=== PATIENT | male | born 1950 | race Caucasian/White ===

== ENCOUNTER 2023-10-16 02:06 | Observation (INO) | payer MEDICARE, SELFPAY ==
[2023-10-16] VITALS (66 sets, daily range): BP systolic 106–149; BP diastolic 68–89; PULSE 60–90; RESP 14–25; TEMP 36.4–36.8; O2SAT 92–99; BMI 27.9
--- NOTE | 2023-10-16 02:43 | ECG_ITS ---
[facility] Test Date: 2023-10-16 Pat Name: Chris Mckeon Department: Room: 106 Gender: Male Baker Paint: : 1950 Requested By: Dayo Beaver Order Number: [id number] Maria Schilling MD: David Munoz M.D. Measurements Intervals [place] Rate: 64 P: 52 MA: 157 QRS: 24 QRSD: 109 T: 3 QT: 391 QTc: 404 Interpretive Statements SINUS RHYTHM No previous ECG available for comparison Electronically Signed On 10-16-2023 18:19:21 CDT by David Munoz M.D. [id number]
--- NOTE | 2023-10-16 02:43 | USCV_ITS ---
Chris Mckeon Age: 72 Gender: M : 1950 Exam Date: 10/16/2023 02:59 Ordering Phys: Dayo Hannah MD Technologist: SHANICE Exam Location: [facility] Indication: chest pain. No history of cardiac intervention per patient. BP: 144 / 87 HR: 70 Rhythm: Sinus Technical Quality: Adequate MEASUREMENTS (Male / Female) Normal Values 2D ECHO LV Diastolic Diameter PLAX 4.1 cm 4.2 - 5.9 / 3.9 - 5.3 cm IVS Diastolic Thickness 1.1 cm 0.6 - 1.0 / 0.6 - 0.9 cm IVS Systolic Thickness 1.4 cm LVPW Diastolic Thickness 1.1 cm 0.6 - 1.0 / 0.6 - 0.9 cm LVPW Systolic Thickness 1.5 cm LVOT Diameter 2.1 cm LV Ejection Fraction 2D Teich 67.3 % LV Ejection Fraction MOD 2C 56.9 % LV Ejection Fraction 2C AL 56.8 % LA Diameter 3.1 cm LA Sys Volume AL 57.8 cm cubed LA Sys Volume Index AL 28.7 cm cubed/m squared Aorta at Sinotubular Diameter 3.2 cm IVC Diameter 1.6 cm M-MODE LA Ao Ratio MM 1.4 AV Cusp Separation MM 2.1 cm DOPPLER AV Peak Velocity 86.0 cm/s LVOT Peak Velocity 79.0 cm/s AV Area Cont Eq vti 4.0 cm squared AV Area Cont Eq pk 3.3 cm squared MV Peak Velocity 82.0 cm/s MV Area PHT 3.2 cm squared Mitral E to A Ratio 0.8 TV Peak Velocity 222.5 cm/s TR Peak Velocity 226.0 cm/s TR Peak Gradient 20.4 mmHg TV Peak E Velocity 32.0 cm/s Right Atrial Pressure 3.0 mmHg Pulmonary Artery Systolic Pressu 23.4 mmHg PV Peak Velocity 70.0 cm/s FINDINGS Left Ventricle Left ventricle is normal size. LV systolic function is normal with EF of 55 to 60%. No regional wall motion abnormalities. Grade 1 diastolic dysfunction Right Ventricle Normal in size and function Right Atrium Normal in size Left Atrium Normal in size Mitral Valve Structurally normal mitral valve. Mild mitral regurgitation Aortic Valve Structurally normal aortic valve. No significant stenosis or regurgitation. Tricuspid Valve Trace tricuspid regurgitation. RVSP is normal. Pulmonic Valve Not well visualized Pericardium Normal Aorta Normal in size IVC Appears to be normal CONCLUSIONS LV systolic function is normal with EF of 55-60% Grade 1 diastolic dysfunction Mild mitral regurgitation Trace tricuspid regurgitation No comparison studies are available. David Munoz MD (Electronically Signed) Final Date: 16 October 2023 18:48 S
--- NOTE | 2023-10-16 02:44 | P.HP_ITS ---
Providers/Chief Complaint Admitting Physician: Dayo Hannah MD Chief Complaint: Angina History of Present Illness Chris Mckeon is a 72 year old male with a past medical history significant for hyperlipidemia, hypothyroidism, and history of puh-xhsjvzm-xhecrqryh diet- controlled type 2 diabetes mellitus who initially presented to outside hospital ([facility]) with chest pain. He is down visiting local park riding horses. Patient reports he was in his usual state of health until this past Saturday when he developed substernal chest pain. He describes the pain as a heartburn-like sensation initially. States the pain got worse every day since Saturday. The episodes lasted longer. Reports it developed radiation going down both arms. States the pain got as bad as a 7 out of 10. States that exertion made the pain much worse. States when he rested, the pain would improve. Due to worsening symptoms he presented to the outside emergency room for further evaluation. At the outside ER, troponin was reportedly negative and there were no reported ischemic changes on EKG. Patient transferred to [facility] for ischemic evaluation due to concern for unstable angina. Patient denies known personal history of heart disease. He denies known family history of heart disease. He reports he had a remote history of a stress test as well as part of the physical many years ago. He believes it was likely normal result. He denies prior cardiac catheterizations. He denies prior similar symptomatology. Review of Systems Narrative: A complete review of systems was obtained and is negative except as stated in HPI. Medications/Allergies Home Medications Medication Instructions Recorded Confirmed Last Taken Type alfuzosin 10 mg tablet,extended mg PO 10/16/23 Unknown History release 24 hr metoclopramide HCl 10 mg tablet mg QID PRN Nausea 10/16/23 Unknown History Allergies Allergy/AdvReac Type Severity Reaction Status Date / Time No Known Allergies Allergy Verified 10/16/23 02:43 PFSH Acute PFSH: Medical History (Updated 10/16/23 @ 03:14 by Dayo Hannah MD) Hip fracture Hypothyroidism Hyperlipidemia Type 2 diabetes mellitus Surgical History (Updated 10/16/23 @ 03:10 by Dayo Hannah MD) History of inguinal hernia repair Family History (Updated 10/16/23 @ 03:10 by Dayo Hannah MD) Mother Breast cancer Social History (Updated 10/16/23 @ 03:10 by Dayo Hannah MD) Smoking and tobacco/nicotine status: never used tobacco/nicotine Alcohol intake: never Substance/Drug Use: never Physical Exam Narrative: General: Patient is awake. Appears fatigued, but very pleasant. Head: Normocephalic. Atraumatic. EOM intact. Neck: No JVD. Cardiovascular: RRR. No gallops. No murmurs. Lungs: Clear to auscultation, no use of accessory muscles, no crackles or wheezes. Skin: No jaundice. No rashes. Abdomen: Normal bowel sounds, abdomen soft and nontender. Genito Urinary: Genital exam not performed since complaints not related. Rectal: Rectal exam not performed since no symptoms indicated blood loss. Extremities: No cyanosis or clubbing. Musculoskeletal: No swollen or erythematous joints. Neurological: Moves all 4 extremities. No myoclonus. A&P Assessment and plan (1) Unstable angina: Presentation concerning for unstable angina Obtain EKG Continuous telemetry monitoring Obtain troponin and BNP Check complete echocardiogram Start aspirin Therapeutic Lovenox after body weight is updated Nitroglycerin as needed Plan to start beta-tara pending vitals Patient will require ischemic workup, consider cardiology consult in a.m. N.p.o. for now (2) Hyperlipidemia: Check lipid panel for restratification (3) Type 2 diabetes mellitus: Patient reports remote history of type 2 diabetes mellitus He reports diet controlled and now resolved Will check A1c for restratification (4) Hypothyroidism: Plan to continue home Synthroid after home med list is updated Plan DVT prophylaxis: Lovenox CODE STATUS: Full code Attestations Medical Necessity Statement*: Patient transferred from outside hospital after presenting with chest pain, concerning for unstable angina with expected hospitalization not to cross 2 midnights for ischemic workup. Coding Level of Care Code Acute Code for g Fwd Diagnoses Unstable angina I20.0 Hyperlipidemia E78.5 Type 2 diabetes mellitus E11.9 Hypothyroidism E03.9
[2023-10-16 04:05] LABS: Basophils % 0.6 %; Eosinophils # 0.6 10^3/uL (0.0-0.8); Eosinophils % 9.6 %; Hematocrit 39.9 % (37-53); Lymphocytes # 1.9 10^3/uL (0.8-4.8); Lymphocytes % 30.2 %; Mean Corpuscular HGB Conc 34.1 g/dL (30-55); Mean Corpuscular Hemoglobin 32.1 pg (27-33); Mean Corpuscular Volume 94.1 fl (82-101); Mean Platelet Volume 8.6 fL (7.4-10.4); Monocytes # 0.6 10^3/uL (0.2-0.9); Monocytes % 9.6 %; Neutrophils # 3.05 10^3/uL (1.8-7.7); Neutrophils % 49.5 %; Nucleated Red Blood Cells % 0 %; Platelet Count 227 10^3/cmm (157-399); Red Blood Count 4.24 10^6/uL (3.85-5.65); Red Cell Distribution Width 12.8 % (12.1-15.1); White Blood Count 6.16 10^3/uL (3.29-11.43)
[2023-10-16 04:17] LABS: Add Urine Microscopic? NO; Charge for UA Resulting for Rev
[2023-10-16 04:22] LABS: Blood Urine Neg (Negative); Glucose Urine UA Norm (Normal); Ketones Urine Negative (Negative); Protein Urine Neg (Negative); Urine Appearance Clear (CLEAR); Urine Color Yellow (Yellow); pH Urine 6.5 (5-7)
[2023-10-16 04:23] LABS: Bilirubin Urine Neg (Negative); Leukocyte Esterase Urine Negative (Negative); Nitrate Urine Negative (Negative); Urobilinogen Urine Neg (Negative)
[2023-10-16 04:25] LABS: Estmated Average Glucose 108; Hemoglobin A1C 5.4 % (4.0-6.0); Troponin T (5th) Once 18 ng/L (0-15)
[2023-10-16 04:27] LABS: INR 0.97 (0.8-1.2)
[2023-10-16 04:35] LABS: Alanine Aminotransferase 20 U/L (0-41); Albumin Level 4.1 g/dL (3.5-5.2); Alkaline Phosphatase 68 U/L (40-130); Aspartate Amino Transferase 27 U/L (0-40); Blood Urea Nitrogen 20 mg/dL (8-23); Carbon Dioxide 24 mmol/L (22-29); Chloride 108 mmol/L (98-107); Chol HDL Ratio 3.45 mg/dL (1.0-5.00); Cholesterol 183 mg/dL (0-200); Creatinine Clr Calc Pharmacy 64.7764; Globulin 2.1 g/dL (1.3-4.6); Glucose 100 mg/dL (65-115); HDL Cholesterol 53 mg/dL (60-100); LDL Cholesterol Calculated 118 mg/dL (50-129); LDL HDL Ratio 2.23 RATIO (0.00-3.22); Magnesium 2.2 mg/dL (1.7-2.3); NT Pro B Type Natriuretic Pept 129 pg/mL (0-125); Osmolality Calculated 297 mOsm/kg (285-295); Sodium 142 mmol/L (136-145); Total Bilirubin 0.2 mg/dL (0.15-1.2); Total Protein 6.2 g/dL (6.6-8.7); Triglycerides 60 mg/dL (0-150)
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
--- NOTE | 2023-10-16 06:00 | XRR_ITS ---
PROCEDURE INFORMATION: Exam: XR Chest Exam date and time: 10/16/2023 4:05 AM Age: 72 years old Clinical indication: Angina; Additional info: Chest pain TECHNIQUE: Imaging protocol: Radiologic exam of the chest. Views: 1 view. COMPARISON: No relevant prior studies available. FINDINGS: Lungs: Unremarkable. No consolidation. Pleural spaces: Unremarkable. No pleural effusion. No pneumothorax. Heart/Mediastinum: Unremarkable. No cardiomegaly. Bones/joints: Degenerative change of the visualized osseous structures. XR/XR chest 1V portable [id number] IMPRESSION: No acute cardiopulmonary findings.
[2023-10-16 06:38] LABS: Troponin(5th) Baseline 17 ng/L (0-15)
[2023-10-16 08:30] LABS: Troponin 5 2HR 15.33 ng/L (0-15)
[2023-10-16 08:32] LABS: Troponin 5 2HR Delta -1.67 ABS# (0-10)
[2023-10-16] MEDS: aspirin 81 mg EC Tablet PO (08:40)
[2023-10-16] MEDS: enoxaparin 80 mg/0.8 mL Syringe SUBCUT (08:40)
--- NOTE | 2023-10-16 09:51 | XACV_ITS ---
Exam Room: [facility] Ht: 173 cm Wt: 82 kg BSA: 2.00 m2 Gender: Male : 1950 Any Known Allergies: No known allergies Exam Priority: Routine Procedure(s): Procedure Description: Diagnostic procedure Procedure Description: PCI procedure Procedure Description: Coronary IVUS Procedure Description: Drug Eluting Coronary Stent Procedure Description: PTCA Procedure Description: Miscellaneous Procedure Description: ACT Procedure Description: Coronary Angiography Diagnostic Cath Status: Urgent Diagnostic Findings * INDICATION: Unstable angina. * Left Main has no significant disease. * Circumflex has mild luminal irregulaities. * Right Coronary Artery has mild luminal irregularities. * Proximal Left Anterior Descending: critical 95% stenosis, GARRETT: 3 flow. * Second Obtuse Marginal Branch Segment: obstructive 70% stenosis, GARRETT: 3 flow. * Coronary angiography shows right dominance. PCI Status: Urgent PCI Indication: NSTE - ACS Interventional Findings * Procedure detail: We engaged left main artery with XB 3.0 guide catheter. IV heparin was administered to maintain anticoagulation. 0.014 run-through guidewire was used to cross the critical LAD stenosis and was put in distal vessel. We then proceeded with predilation with a 3.5 x 12 mm semicompliant balloon. This was followed by IVUS to size the vessel. We placed 4.0 x 15 mm resolute Rivas drug-eluting stent. This stent was postdilated with a 4.5 x 8 mm NC balloon. Final angiogram showed excellent stent expansion and no residual stenosis. We then turned our attention to OM 2 branch. We predilated the lesion with a 3.5 x 12 mm semicompliant balloon. This was followed by placement of a 3.5 x 18 mm's resolute Rivas drug-eluting stent. Proximally we postdilated the stent with 3.75 x 15mm NC balloon. At this time final angiogram was performed that showed excellent stent expansion, no residual stenosis and GARRETT-3 flow. Guide wire and guide catheter were removed. 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 . * Proximal Left Anterior Descendin% stenosis treated with a AB TREK 3.50X12 RX BALLOON, MDT R RIVAS 4.0X15 FAUSTO, and MDT NC EUPHORA RX [id number] BALLOON. 0% residual stenosis, GARRETT: 3 flow. * Second Obtuse Marginal Branch Segment: 70% stenosis treated with a AB TREK 3.50X12 RX BALLOON, MDT R RIVAS 3.5X18 FAUSTO, and MDT NC EUPHORA RX [id number] BALLOON. 0% residual stenosis, GARRETT: 3 flow. Conclusions 1. Critical proximal LAD stenosis status post successful revascularization with 1 stent. Severe OM 2 stenosis s/p successful revascularization with 1 stent.. 2. Proximal Left Anterior Descending was treated with a Balloon, Drug Eluting Stent, and Balloon. 3. Second Obtuse Marginal Branch Segment was treated with a Balloon, Drug Eluting Stent, and Balloon. Recommendations * Dual antiplatelet therapy with aspirin and brilinta for atleast 1 year. * High intensity statin therapy. * Outpatient cardiology follow up in 2-4 weeks. Interventional RX Recommendation: PCI w/o planned CABG Diagnostic RX Recommendation: PCI w/o planned CABG Anticoagulation: Heparin Pressures Phase:Rest AO : 89 / 71 ( 81 ) @ 11:24:00 AM 108 / 55 ( 74 ) @ 11:32:00 AM 100 / 73 ( 87 ) @ 11:39:00 AM 83 / 67 ( 77 ) @ 11:41:00 AM 115 / 79 ( 97 ) @ 11:42:00 AM 127 / 82 ( 104 ) @ 11:52:00 AM 116 / 84 ( 100 ) @ 11:53:00 AM 112 / 77 ( 94 ) @ 12:02:00 PM 104 / 73 ( 84 ) @ 12:09:00 PM Clinical Evaluation EBL: 5mL-10mL Procedural Details Procedure Consent Obtained. Admit Source: In Patient. Pre-Procedure Time Out. Identified patient by full name and date of as verbalized by the patient/guarantor. Does the consent match the physician's order: Yes. Accurate & Complete Informed Consent: Yes. Inpatient/Outpatient History & Physical on Chart: Yes. If H&P is completed, is and addenduem needed: No; If yes, is the addendum complete: N/A. Visualize and Verify Site with Patient/Guarantor: N/A. Relevant Radiology Images available: N/A. The risks, benefits, and alternatives of sedation and/or procedure were discussed by physician. The patient agrees to continue. Procedure started. [facility] Clinical Fraility Score: 3: Managing Well. Design Verification Engineer Indications: Worsening Angina. Chest Pain Symptom Assessment: Typical Angina Symptoms. Correct patient, site and procedure confirmed by cath team. Current diagnosis: Unstable angina. PERRLA. Strong, equal hand flat ironer bilaterally. Lungs clear x 5 lobes. IV Site on Arrival: 18 gauge in the left forearm. IV Fluids: 0.9% NaCl at KVO. 0 mL infused prior to tutorial laboratory supervisor. Oxygen started at 2liters/min via nasal canula. Pre Procedural Pulses: bilateral dorsalis pedis was 2+. Pre Procedural Pulses: left posterior tibial was Doppled. Pre Procedural Pulses: right posterior tibial was 1+. right groin was prepped with chloroprep then draped in the usual sterile fashion. right radial was prepped with chloroprep then draped in the usual sterile fashion. Baseline sample Acquired. HR: 74 BPM. Physician arrived. Physician scrubbed in. Immediate Pre-Procedure Time Out. Correct Patient: Yes; Correct Procedure: Yes; Correct Site: Yes; Correct Patient Position: Yes; Correct Supplies: Yes; Dried Flammable Prep: Yes; Blood Products Available: N/A;. Lidocaine 1% infiltrated to the right radial. Arterial access obtained. A 5 burundian TIG catheter in over wire. Multiple views taken of left coronary artery. Catheter redirected to the RCA. Multiple views taken of right coronary artery. Catheter removed over the exchange wire. 6 burundian XB 3 guide catheter was inserted over the wire. Runthrough guidewire was advanced through the guide catheter to lesion in the prox LAD. Inflation number : 1 A AB TREK 3.50X12 RX BALLOON was prepped and advanced across the Prox LAD , then inflated to 6 JEAN for 0:07 seconds. Inflation number: 2 The AB TREK 3.50X12 RX BALLOON was reinflated across the Prox LAD, to 14 JEAN for 0:15 seconds. Balloon out. IVUS catheter inserted and advanced to the prox LAD. IVUS measurements obtained. IVUS catheter out OTW. Inflation Number : 3 A MDT R RIVAS 4.0X15 FAUSTO -Lot Number# _[id number] EXP: 01/08/2026 was prepped and advanced across the Prox LAD. The stent was deployed at 12 JEAN for 0:22 seconds. Stent balloon out over wire. Results checked. IVUS catheter inserted and advanced to the prox LAD. IVUS measurements obtained. IVUS catheter out OTW. Inflation number : 4 A MDT NC EUPHORA RX [id number] BALLOON was prepped and advanced across the Prox LAD , then inflated to 14 JEAN for 0:14 seconds. Inflation number: 5 The MDT NC EUPHORA RX [id number] BALLOON was reinflated across the Prox LAD, to 16 JEAN for 0:11 seconds. Balloon out. Results checked. A second Runthrough guidewire was advanced through the guide catheter to lesion in the OM. The first Runthrough wire removed. Inflation number: 1 The AB TREK 3.50X12 RX BALLOON was reinflated across the 2nd Ob Zohra, to 12 JEAN for 0:25 seconds. Balloon out. Inflation Number : 2 A MDT R RIVAS 3.5X18 FAUSTO -Lot Number# _[id number] EXP:01/27/2026 was prepped and advanced across the 2nd Ob Zohra. The stent was deployed at 12 JEAN for 0:21 seconds. Stent balloon out over wire. Results checked. Inflation number : 3 A MDT NC EUPHORA RX [id number] BALLOON was prepped and advanced across the 2nd Ob Zohra , then inflated to 18 JEAN for 0:22 seconds. Balloon out. Results checked. Wire out. ACT drawn. Results out of range high seconds. Therapeutic limits - pre-heparin administration 90-150 seconds and monitoring heparin during a vascular procedure >250 seconds. Guide catheter out. A TR Band was successful obtaining hemostatsis at the Right Radial artery insertion site. Post Procedure: Pulses reassessed and unchanged. PERRLA. Strong, equal hand flat ironer bilaterally. No VTE prophylaxis required. Medication's Wasted: Lidocaine 1% = 18 mL. Medication's Wasted: Nitro = 49.6 mcg. Medication's Wasted: Heparin = 3000 units. Medication's Wasted: Other = Fentanyl 25mcg Versed 1 mg. Total IV fluids: 83 mL. Vital chart was stopped. Complications: None. Estimated blood loss: 5mL-10mL. Responsiveness - Normal response to verbal stimuli; alert and oriented, PERRLA. Airway - Unaffected, no intervention required; spontaneous ventilation. Circulation: W/N/L, pulses unchanged. Nausea/Vomiting: No. Procedure completed. Patient transferred by wheelchair to CPRU. Access Site Site: Right Radial artery Sheath Size: 6 Fr Hemostasis Method: TR Band Hemostasis Success: Successful Procedure Medications Start: 10:12 AM Stop: 10:12 AM Medication: Versed Amount: 1 mg Route: I.V. Start: 10:12 AM Stop: 10:12 AM Medication: Fentanyl Amount: 50 mcg Route: I.V. Start: 10:22 AM Stop: 10:22 AM Medication: Versed Amount: 1 mg Route: I.V. Start: 10:22 AM Stop: 10:22 AM Medication: Nitrogylcerin Amount: 200 mcg Route: I.A. Start: 10:29 AM Stop: 10:29 AM Medication: Heparin Amount: 7000 units Route: I.V. Start: 10:30 AM Stop: 10:30 AM Medication: Nitrogylcerin Amount: 200 mcg Route: I.A. Start: 10:45 AM Stop: 10:45 AM Medication: Heparin Amount: 1000 units Route: I.V. Start: 10:47 AM Stop: 10:47 AM Medication: Zofran (ondansetron) Amount: 4 mg Route: I.V. Start: 10:58 AM Stop: 10:58 AM Medication: Versed 1 mg and Fentanyl 25 mcg Amount: 1 Route: I.V. Start: 11:00 AM Stop: 11:00 AM Medication: Aggrastat 12.5 mg/250 mL Amount: 41 ml Route: I.V. bolus Start: 11:01 AM Stop: 11:01 AM Medication: Aggrastat 12.5 mg/250 mL Amount: 14.8 ml/hr Route: I.V. drip Start: 11:15 AM Stop: 11:15 AM Medication: 0.9% Saline Amount: 75 ml/hr Route: I.V. drip Start: 11:18 AM Stop: 11:18 AM Medication: Brilinta Amount: 180 mg Route: P.O. I, the attending physician, have reviewed and verified all procedure medications. Yes, all medications given per verbal order History/Risk Factors Hypertension: No Dyslipidemia: Yes Peripheral Arterial Disease (PAD): No Myocardial Infarction (MD): No Obesity: No Renal Disease: No Tobacco Use: Never Prior Interventions PCI: No CABG: No Valve Surgery: No Report Signatures Finalized by David Munoz MD on 10/27/2023 01:52 PM
--- NOTE | 2023-10-16 09:56 | PM.CONSULT ---
Providers/Reason For Consult Consulting Physician/Specialty*: David Munoz MD/ Cardiology Reason for Consult*: Unstable angina Requesting Physician: Dr Keen Attending Physician: Dara Keen MD History of Present Illness History of Present Illness Chris Mckeon is a 72 year old male with past medical history of hypertension, hyperlipidemia, diet-controlled diabetes who was transferred from outside hospital secondary to concerns for unstable angina. Since last 3 to 4 days he has been having worsening substernal chest pain radiating to the arms. Sometimes feels like heartburn. His troponins have not trended up. EKG not showing any significant ischemic changes. Pain goes to 7/10 in intensity. Rest has improved pain at times but comes back with activity. Review of Systems Narrative: A complete review of systems was obtained and is negative except as stated in HPI. Medications/Allergies Home Medications Medication Instructions Recorded Confirmed Last Taken Type alfuzosin 10 mg tablet,extended 10 mg PO 1XD 10/16/23 10/16/23 Unknown History release 24 hr diclofenac sodium 75 mg 75 mg PO 1XD 10/16/23 10/16/23 Unknown History tablet,delayed release gemfibrozil 600 mg tablet 600 mg PO BID 10/16/23 10/16/23 Unknown History hydroxychloroquine 200 mg tablet 200 mg PO BID 10/16/23 10/16/23 10/15/23 History levothyroxine 125 mcg tablet 125 mcg PO 1XD 10/16/23 10/16/23 Unknown History metoclopramide HCl 10 mg tablet 10 mg PO QID PRN Nausea 10/16/23 10/16/23 Unknown History omeprazole 40 mg capsule,delayed 40 mg PO BID 10/16/23 10/16/23 Unknown History release Allergies Allergy/AdvReac Type Severity Reaction Status Date / Time No Known Allergies Allergy Verified 10/16/23 02:43 Current Medications Generic Name Dose Route Start Last Admin Trade Name Freq PRN Reason Stop Dose Admin Aspirin 81 mg 10/16/23 09:00 10/16/23 08:40 Aspirin 81 Mg Ec Tablet PO 81 mg DAILY SHENG Administration Enoxaparin Sodium 80 mg 10/16/23 06:30 10/16/23 08:40 Enoxaparin 80 Mg/0.8 Ml Syringe SUBCUT 80 mg Q12H SHENG Administration PFSH Acute PFSH: Medical History Hip fracture Hypothyroidism Hyperlipidemia Type 2 diabetes mellitus Surgical History History of inguinal hernia repair Family History Mother Breast cancer Social History Smoking and tobacco/nicotine status: never used tobacco/nicotine Alcohol intake: never Substance/Drug Use: never Vitals/I&O/Wt Last Vital Signs Temp 98.1 F 10/16/23 07:08 Pulse 70 10/16/23 07:08 Resp 22 H 10/16/23 07:08 BP 114/80 10/16/23 07:08 Pulse Ox 95 10/16/23 07:08 O2 Del Method Room Air 10/16/23 07:08 10/15/23 10/16/23 10/16/23 22:59 06:59 14:59 Intake Total 120 / 120 Output Total 600 / 600 700 / 700 Balance -600 / -600 -580 / -580 Weight last 48 hrs Weight 181 lb Weight 181 lb Weight 183 lb 9.6 oz Physical Exam Narrative: GENERAL: Patient is alert, awake and oriented x3. [] NECK: No jugular vein distension. [] HEENT: No cyanosis. No icterus. No pallor. [] HEART: Regular S1 and S2. No murmur, rub or gallop. [] LUNGS: Clear to auscultate bilaterally. [] CENTRAL NERVOUS SYSTEM: Grossly nonfocal. [] EXTREMITIES: Lower extremities with 1+ edema bilaterally. Data 10/16/23 03:24 10/16/23 03:24 A&P Assessment and plan (1) Unstable angina: (2) Hyperlipidemia: (3) Type 2 diabetes mellitus: Plan Patient has presented with symptoms concerning for unstable angina. He has multiple risk factors for CAD. Will proceed with coronary angiogram with possible PCI. Risks and benefits of the procedure been discussed with the patient. He understands them and wants to proceed Patient has received anticoagulation. Continue NPO. Echocardiogram ordered. Thank you for involving us with care of this patient. We will continue to follow. Please call with questions Consult Attestations Medical Necessity Statement: Care expected to cross 2 midnights. Coding Level of Care Code Acute Code for [facility] Fwd Diagnoses Unstable angina I20.0 Hyperlipidemia E78.5 Type 2 diabetes mellitus E11.9
--- NOTE | 2023-10-16 10:15 | W.PM.OPSUD ---
Surgery/Procedure H&P Update DATE OF PROCEDURE: October 16, 2023 DATE H&P PERFORMED: 10/16/23 H&P UPDATE INFORMATION: I have reviewed H&P completed within last 30 days, I have examined patient prior to procedure and No changes to prior documentation PREOP DIAGNOSIS: Unstable angina PRIMARY INDICATION FOR PROCEDURE: Unstable angina PLANNED PROCEDURE: Left heart cath with possible percutaneous coronary intervention PATIENT REASSESSED PRIOR TO SEDATION, WITH NO CHANGE NOTED: Yes PHYSICAL EXAM: alert, oriented x 3, clear to auscultation bilaterally and regular rate & rhythm AIRWAY EVAL/ANESTHESIA PLAN: normal airway, ASA III, Local Anesthesia, Risks, benefits & alternatives of sedation and/or procedure discussed and Patient agrees to continue as planned ADDITIONAL INFORMATION: Moderate sedation
--- NOTE | 2023-10-16 11:21 | PM.MISC ---
Miscellaneous Note Purpose of Documentation: Brief procedure note Note: Coronary angiogram Left main artery is patent. Critical proximal LAD 95% stenosis s/p successful revascularization with 1 stent Severe OM stenosis s/p 1 stent PLAN: Transfer back to [facility] for 4 hours Continue aspirin 81mg daily. 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 Will be on 90mg BID brilinta starting 9PM. Tele monitoring
[2023-10-16] MEDS: sodium chloride 0.9% 1,000 ML 100 ML IV (12:00)
[2023-10-16 12:35] LABS: Troponin 5 6HR 17.05 ng/L (0-15); Troponin 5 6HR Delta 0.05 ng/L (0-12)
[2023-10-16] MEDS: acetaminophen 325 mg Tablet 650 MG PO ×2 (13:17→17:10)
--- NOTE | 2023-10-16 13:18 | PC.RESP ---
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 pt had returned to floor and was able to have 3rd ekg performed
--- NOTE | 2023-10-16 14:17 | ECG_ITS ---
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 Measurements Intervals [place] Rate: 60 P: 47 ID: [id number] QRS: 34 QRSD: 106 T: 23 QT: 410 QTc: 412 Interpretive Statements SINUS RHYTHM Compared to ECG 10/16/2023 03:48:59 No significant changes Electronically Signed On 10-16-2023 18:17:48 CDT by David Munoz M.D. [id number]
--- NOTE | 2023-10-16 15:10 | PC.NURSE ---
[facility] bag ran out at 15:04. It was to be turned off at 15:20. No new bag hung at this time as it was to only run for another 16 minutes.
[2023-10-16] MEDS: ticagrelor 90 mg Tablet PO (17:11)
[2023-10-16] MEDS: atorvastatin 40 mg Tablet 80 MG PO (21:02)
[2023-10-16] MEDS: metoprolol tartrate 25 mg Tablet PO (21:02)
[2023-10-17 00:44] VITALS: BP 142/85; PULSE 67; RESP 18; O2SAT 95
[2023-10-17 05:47] VITALS: BP 142/85; PULSE 63; RESP 8; O2SAT 96
[2023-10-17 06:00] VITALS: PULSE 63; BMI 27.5
[2023-10-17 07:39] VITALS: BP 121/78; PULSE 76; RESP 18; TEMP 36.6; O2SAT 95
[2023-10-17] MEDS: metoprolol tartrate 25 mg Tablet PO (08:19)
[2023-10-17] MEDS: aspirin 81 mg EC Tablet PO (08:19)
[2023-10-17] MEDS: ticagrelor 90 mg Tablet PO (08:19)
[2023-10-17] MEDS: levothyroxine 125 mcg Tablet PO (08:19)
[2023-10-17 08:25] LABS: Basophils % 0.4 %; Eosinophils # 0.4 10^3/uL (0.0-0.8); Eosinophils % 4.2 %; Hematocrit 45.1 % (37-53); Lymphocytes # 1.3 10^3/uL (0.8-4.8); Lymphocytes % 13.4 %; Mean Corpuscular HGB Conc 33.9 g/dL (30-55); Mean Corpuscular Hemoglobin 31.9 pg (27-33); Mean Platelet Volume 8.5 fL (7.4-10.4); Monocytes # 0.8 10^3/uL (0.2-0.9); Monocytes % 8.4 %; Neutrophils # 7.16 10^3/uL (1.8-7.7); Neutrophils % 73.1 %; Nucleated Red Blood Cells % 0 %; Platelet Count 263 10^3/cmm (157-399); Red Cell Distribution Width 12.8 % (12.1-15.1); White Blood Count 9.79 10^3/uL (3.29-11.43)
[2023-10-17 08:41] LABS: Anion Gap 16.1 (5-19); Blood Urea Nitrogen 16 mg/dL (8-23); Calcium 9.2 mg/dL (8.5-10.5); Carbon Dioxide 24 mmol/L (22-29); Chloride 104 mmol/L (98-107); Creatinine Clr Calc Pharmacy 70.8017; Glucose 109 mg/dL (65-115); Osmolality Calculated 292 mOsm/kg (285-295); Potassium 4.1 mmol/L (3.5-5.1); Sodium 140 mmol/L (136-145)
--- NOTE | 2023-10-17 08:45 | P.PN_ITS ---
Subjective 2 Subjective: Patient is doing well. No chest pain. Vitals/I&O/Wt Last Vital Signs Temp 97.9 F 10/17/23 07:39 Pulse 76 10/17/23 07:39 Resp 18 10/17/23 07:39 BP 121/78 10/17/23 07:39 Pulse Ox 95 10/17/23 07:39 O2 Del Method Room Air 10/17/23 07:39 10/16/23 10/17/23 10/17/23 22:59 06:59 14:59 Intake Total 1360 / 1720 Output Total 600 / 1750 Balance 760 / -30 Weight last 48 hrs Weight 181 lb Weight 181 lb Weight 181 lb Weight 183 lb 9.6 oz Physical Exam 2 Narrative: GENERAL: Patient is alert, awake and oriented x3. [] NECK: No jugular vein distension. [] HEENT: No cyanosis. No icterus. No pallor. [] HEART: Regular S1 and S2. No murmur, rub or gallop. [] LUNGS: Clear to auscultate bilaterally. [] CENTRAL NERVOUS SYSTEM: Grossly nonfocal. [] EXTREMITIES: Lower extremities with 1+ edema bilaterally. Data 10/17/23 07:58 10/17/23 07:58 A&P Assessment and plan (1) Unstable angina: (2) Hyperlipidemia: (3) Type 2 diabetes mellitus: Plan Patient is overall doing well.No chest pain. Had PCI of proximal LAD with 1 stent and of OM with 1 stent. Cotninue dual antiplatelet therapy with aspirin and brilinta for atleast 1 year High intensity statin therapy echo showed normal LV systolic function Patient is stable to be discharged from cardiac standpoint. Attestations 2 Medical Necessity Statement*: Care expected to cross 2 midnights. Coding Level of Care Code Acute Code for [facility] Fwd Diagnoses Unstable angina I20.0 Hyperlipidemia E78.5 Type 2 diabetes mellitus E11.9
--- NOTE | 2023-10-17 09:36 | PM.DCS ---
Discharge Providers Date of Admission: 10/16/23 02:06 Date of Discharge: October 17, 2023 Attending Provider at Admission: Dayo Hannah MD Attending Provider at Discharge: Dara Keen MD Diagnoses at Discharge Discharge Diagnosis (1) Unstable angina: Status: Acute (2) Hyperlipidemia: Status: Acute (3) Type 2 diabetes mellitus: Status: Acute Reason for Visit Reason for Visit: Angina Brief History: 72 year old male with a past medical history significant for hyperlipidemia, hypothyroidism, and history of lxs-blqaowv-ccskvvffp diet-controlled type 2 diabetes mellitus who initially presented to outside hospital ([facility]) with chest pain. [place] down [place]. Patient reports he was in his usual state of health until this past Saturday when he developed substernal chest pain. He describes the pain as a heartburn-like sensation initially. States the pain got worse every day since Saturday. The episodes lasted longer. Reports it developed radiation going down both arms. States the pain got as bad as a 7 out of 10. States that exertion made the pain much worse. States when he rested, the pain would improve. Due to worsening symptoms he presented to the outside emergency room for further evaluation. At the outside ER, troponin was reportedly negative and there were no reported ischemic changes on EKG. Patient transferred to [facility] for ischemic evaluation due to concern for unstable angina. Patient denies known personal history of heart disease. He denies known family history of heart disease. He reports he had a remote history of a stress test as well as part of the physical many years ago. He believes it was likely normal result. He denies prior cardiac catheterizations. He denies prior similar symptomatology. Hospital Course Hospital Course Cardiology consulted for questionable symptoms of unstable angina and he underwent Cardiac cath which showed Left main artery is patent. Critical proximal LAD 95% stenosis s/p successful revascularization with 1 stent Severe OM stenosis s/p 1 stent He is doing well, hemodynamically stable and ready to be discharged home with new medications, aspirin, atorvastatin, metoprolol and Brilinta. Plan for him to follow-up with PCP and cardiology in 1 week in [place] Physical Exam Narrative: He is alert awake oriented x 3 not in acute distress Chest clear to auscultation bilaterally Cardiovascular normal heart sounds no murmurs Abdomen NAD Extremities no edema noted bilateral lower extremity Discharge Data Studies Completed and Pending Completed Studies During Hospitalization Category Date Time Status XR chest 1V portable [id number] Routine Exams 10/16/23 06:00 Completed CV. echo complete* [id number] Routine Ultrasound 10/16/23 02:43 Completed Pending at discharge Category Date Time Status CORE BLOWER request for service Routine Exams 10/16/23 09:51 Taken Radiology Impressions Chest X-Ray 10/16/23 06:00 IMPRESSION: No acute cardiopulmonary findings. Laboratory Results WBC 9.79 10^3/uL (3.29-11.43) 10/17/23 07:58 RBC 4.80 10^6/uL (3.85-5.65) 10/17/23 07:58 Hgb 15.30 g/dL (11.27-16.99) 10/17/23 07:58 Hct 45.1 % (37-53) 10/17/23 07:58 MCV 94.0 fl (82-101) 10/17/23 07:58 MCH 31.9 pg (27-33) 10/17/23 07:58 MCHC 33.9 g/dL (30-55) 10/17/23 07:58 RDW 12.8 % (12.1-15.1) 10/17/23 07:58 Plt Count 263 10^3/cmm (157-399) 10/17/23 07:58 MPV 8.5 fL (7.4-10.4) 10/17/23 07:58 Neut % (Auto) 73.1 % 10/17/23 07:58 Lymph % (Auto) 13.4 % 10/17/23 07:58 [place] % (Auto) 8.4 % 10/17/23 07:58 Eos % (Auto) 4.2 % 10/17/23 07:58 Baso % (Auto) 0.4 % 10/17/23 07:58 Neut # (Auto) 7.16 10^3/uL (1.8-7.7) 10/17/23 07:58 Lymph # (Auto) 1.3 10^3/uL (0.8-4.8) 10/17/23 07:58 [place] # (Auto) 0.8 10^3/uL (0.2-0.9) 10/17/23 07:58 Eos # (Auto) 0.4 10^3/uL (0.0-0.8) 10/17/23 07:58 Baso # (Auto) 0.0 10^3/uL (0.0-0.1) 10/17/23 07:58 Nucleated RBC % (auto) 0 % 10/17/23 07:58 Nucleated RBCs # 0.0 /100WBC 10/17/23 07:58 PT 13.20 SECONDS (12.1-14.9) 10/16/23 03:24 INR 0.97 (0.8-1.2) 10/16/23 03:24 Sodium 140 mmol/L (136-145) 10/17/23 07:58 Potassium 4.1 mmol/L (3.5-5.1) 10/17/23 07:58 Chloride 104 mmol/L (98-107) 10/17/23 07:58 Carbon Dioxide 24 mmol/L (22-29) 10/17/23 07:58 Anion Gap 16.1 (5-19) 10/17/23 07:58 BUN 16 mg/dL (8-23) 10/17/23 07:58 Creatinine 1.0 mg/dL (0.7-1.2) 10/17/23 07:58 GFR Calculation Not Reportable 10/17/23 07:58 Glucose 109 mg/dL (65-115) 10/17/23 07:58 Estimat Average Glucose 108 10/16/23 03:24 Hemoglobin A1c 5.4 % (4.0-6.0) 10/16/23 03:24 Calculated Osmolality 292 mOsm/kg (285-295) 10/17/23 07:58 Calcium 9.2 mg/dL (8.5-10.5) 10/17/23 07:58 Phosphorus 3.0 mg/dL (2.5-4.5) 10/16/23 03:24 Magnesium 2.2 mg/dL (1.7-2.3) 10/16/23 03:24 Total Bilirubin 0.2 mg/dL (0.15-1.2) 10/16/23 03:24 AST 27 U/L (0-40) 10/16/23 03:24 ALT 20 U/L (0-41) 10/16/23 03:24 Alkaline Phosphatase 68 U/L (40-130) 10/16/23 03:24 Troponin T 5th Gen ng/L 18 ng/L (0-15) H 10/16/23 03:24 Troponin T Baseline 17 ng/L (0-15) H 10/16/23 06:13 Troponin T 120 Minute 15.33 ng/L (0-15) H 10/16/23 08:04 Delta Troponin T -1.67 ABS# (0-10) L 10/16/23 08:04 Troponin T Hi Sens 6Hr 17.05 ng/L (0-15) H 10/16/23 12:11 Troponin T Hi Sens 6Hr Delta 0.05 ng/L (0-12) 10/16/23 12:11 NT-Pro-B Natriuret Pep 129 pg/mL (0-125) H 10/16/23 03:24 Total Protein 6.2 g/dL (6.6-8.7) L 10/16/23 03:24 Albumin 4.1 g/dL (3.5-5.2) 10/16/23 03:24 Globulin 2.1 g/dL (1.3-4.6) 10/16/23 03:24 Triglycerides 60 mg/dL (0-150) 10/16/23 03:24 Cholesterol 183 mg/dL (0-200) 10/16/23 03:24 LDL Cholesterol, Calc 118 mg/dL (50-129) 10/16/23 03:24 HDL Cholesterol 53 mg/dL (60-100) L 10/16/23 03:24 LDL/HDL Ratio 2.23 RATIO (0.00-3.22) 10/16/23 03:24 Cholesterol/HDL Ratio 3.45 mg/dL (1.0-5.00) 10/16/23 03:24 Urine Color Yellow (Yellow) 10/16/23 04:00 Urine Appearance Clear (CLEAR) 10/16/23 04:00 Urine pH 6.5 (5-7) 10/16/23 04:00 Ur Specific Downs 1.010 (1.005-1.030) 10/16/23 04:00 Urine Protein Neg (Negative) 10/16/23 04:00 Urine Glucose (UA) Norm (Normal) 10/16/23 04:00 Urine Ketones Negative (Negative) 10/16/23 04:00 Urine Blood Neg (Negative) 10/16/23 04:00 Urine Nitrate Negative (Negative) 10/16/23 04:00 Urine Bilirubin Neg (Negative) 10/16/23 04:00 Urine Urobilinogen Neg mg/dL (Negative) 10/16/23 04:00 Ur Leukocyte Esterase Negative (Negative) 10/16/23 04:00 Vitals Last Vital Signs Temp 97.9 F 10/17/23 07:39 Pulse 76 10/17/23 07:39 Resp 18 10/17/23 07:39 BP 121/78 10/17/23 07:39 Pulse Ox 95 10/17/23 07:39 O2 Del Method Room Air 10/17/23 07:39 Discharge Plan Discharge Patient Disposition: Home Condition: Stable Prescriptions: New atorvastatin 40 mg Tablet 80 mg PO BEDTIME 30 Days Qty: 60 0RF aspirin 81 mg Tablet,Delayed Release (Dr/Ec) 81 mg PO DAILY 30 Days Qty: 30 0RF metoprolol tartrate 25 mg Tablet 25 mg PO BID@0900,2100 30 Days Qty: 60 0RF Brilinta 90 mg Tablet 90 mg PO BID 30 Days Qty: 60 0RF Continued metoclopramide HCl 10 mg tablet 10 mg PO QID PRN (Reason: Nausea) alfuzosin 10 mg tablet extended release 24 hr 10 mg PO 1XD hydroxychloroquine 200 mg tablet 200 mg PO BID omeprazole 40 mg capsule,delayed release(DR/EC) 40 mg PO BID levothyroxine 125 mcg tablet 125 mcg PO 1XD Discontinued diclofenac sodium 75 mg tablet,delayed release (DR/EC) 75 mg PO 1XD gemfibrozil 600 mg tablet 600 mg PO BID Discharge Orders: Discharge Order (Routine); Ordered 10/17/23 Ordered By: Dara Keen Referrals: Dr. Francois Graf [Other] - 10/23/23 11:30 am (Please arrive at least 15 minutes early for paperwork. Thank you.) Rossy Phillips FNP [Nurse Practitioner] - 11/13/23 3:30 pm Discharge Diet: Cardiac Discharge Activity: Increase activity as tolerated Patient Instructions: Metoprolol (By mouth) (Lopressor, Toprol XL), Aspirin (By mouth) (Garrett Extra Strength, [facility] Aspirin [facility],..., Atorvastatin (By mouth) (Lipitor, Atorvaliq), Ticagrelor (By mouth) (Brilinta), Coronary Angioplasty (DC), Opioid Safety, Post Angiogram Home Care Instructions Plan of Treatment: patient to follow up with PCP and cardiology in 1 week in [place] where he lives. Discharge Attestations Time Spent in Discharge Care*: less than 30 min Quality Metrics Clinical Quality Measures [ No reported AMI, CVA or VTE this stay] Coding Level of Care Code Acute Code for [facility] Fwd Diagnoses Unstable angina I20.0 Hyperlipidemia E78.5 Type 2 diabetes mellitus E11.9 Time Spent (min) 20
--- NOTE | 2023-10-17 11:14 | PC.NURSE ---
Provider requested that nursing staff call in his new discharge medications to [facility] pharmacy for meds to beds. Pharmacy is called and requested meds to beds.
--- NOTE | 2023-10-17 11:44 | PC.NURSE ---
Dr. Munoz is notified that patient can not afford the Brilinta ($221/month after insurance). Provider ordered plavix 600mg PO loading dose to give now and then plavix 75mg PO daily. Pharmacy is notified.
[2023-10-17 11:47] VITALS: BP 130/76; PULSE 76; RESP 20; TEMP 36.7; O2SAT 96
--- NOTE | 2023-10-17 11:49 | PC.NURSE ---
Dr. Munoz is aware that patient has had a dose of Brilinta this morning and would like to still give him the loading dose of Plavix due to having to change his home medication to Plavix and needs the loading dose here in the hospital.
[2023-10-17] MEDS: clopidogrel 300 mg Tablet 600 MG PO (11:58)
[2023-10-17 12:09] VITALS: BP 130/76; PULSE 76; RESP 20; TEMP 36.7; O2SAT 96
--- NOTE | 2023-10-17 12:30 | PC.NURSE ---
Patient is discharged. Patient is leaving via a private wheelchair to private car with . He states understanding with discharge paperwork. Patient is given his wallet from the [employer].
== END 2023-10-17 12:38 | disposition home or self-care (01) ==
PROVIDERS: Internal Medicine; Admitting Provider Internal Medicine; Visit Provider Internal Medicine
DX: I25.110 Atherosclerotic heart disease of native coronary artery with unstable angina pectoris (principal); E78.5 Hyperlipidemia, unspecified; E11.9 Type 2 diabetes mellitus without complications; E03.9 Hypothyroidism, unspecified
CPT/HCPCS: 36415; 71045; 80048; 80053; 80061; 81003; 83036; 83735; 83880; 84100; 84484; 85025; 85347; 85610; 92978; 93005; 93306; 93454; 96372; 96374; 96375; 99152; 99153; C1725; C1753; C1769; C1874; C1887; C1894; C9600; C9601; G0378; G0379; J1644; J1650; J2250; J2405; J3010; J3490; J7030; Q9967